=== PATIENT | female | born 1950 | race Caucasian/White ===

== ENCOUNTER 2016-05-29 17:08 | Emergency (ER) | END 2016-05-29 20:24 | disposition home or self-care (01) | DX: J06.9 Acute upper respiratory infection, unspecified (principal); I10 Essential (primary) hypertension; Z79.82 Long term (current) use of aspirin | CPT/HCPCS: 94664; 99283; J7512 ==

== ENCOUNTER 2016-07-20 14:40 | Emergency (ER) | payer OTHER ==
[~2016-07-20] VITALS: Ht 157.5 cm; Wt 83.5 kg
[~2016-07-20 14:40] MED LIST: ACET500C5 PO; ALBU18HF INHALATION; ASPI81TA3 PO; ATOR10TA65 PO; FAMO-18 PO; MAG355OR14 PO; MECL12.574 PO; OMEP20CA16 PO; PRED20TA PO; TRAM50TA2 PO
[2016-07-20 14:46] VITALS: Ht 157.5 cm; Wt 83.5 kg
--- NOTE | 2016-07-20 16:08 | ERD ---
ER Documentation Chief Complaint Date/Time DATE: 07/20/16 TIME: 16:03 Chief Complaint LEFT FACIAL PAIN AND LEFT ARM PAIN TODAY HPI 65-year-old female with a history of hypertension, knee arthritis, and cervical spine arthritis presents to the emergency department complaining of intermittent left-sided headache, left-sided facial numbness, left-sided lacrimation, left-sided arm pain and numbness 1 day. Patient currently describes her arm pain as a 6 out of 10 throbbing, intermittent, left-sided facial and upper extremity pain. Patient also complains of intermittent left- sided knee swelling and pain with ambulation. Patient states she has experienced all of her symptoms multiple times in the past. Patient states she has not attempted to treat her pain with any medication thus far. She denies any weakness, nausea, vomiting, diarrhea, abdominal pain, fever, or recent trauma. She denies chest pain or shortness of breath. ROS All systems reviewed and are negative except as per history of present illness. Medications Home Meds Active Scripts Ibuprofen* (Motrin*) 600 Mg Tab, 600 MG PO Q6, #30 TAB Prov:DOMINGA CHRISTINA PA-C 07/20/16 Hydrocodone/Acetaminophen (Hughes 5-325 Tablet) 1 Each Tablet, 1 TAB PO Q6H Y for PAIN, #7 TAB Prov:DOMINGA CHRISTINA PA-C 07/20/16 Cyclobenzaprine Hcl* (Cyclobenzaprine Hcl*) 10 Mg Tablet, 10 MG PO TID, #15 TAB Prov:DOMINGA CHRISTINA PA-C 07/20/16 Albuterol Sulfate* (Ventolin HFA*) 18 Gm Hfa.aer.ad, 2 PUFF INHALATION Q4H, #1 INHALER Prov:DIANE SKAGGS MD 05/29/16 Prednisone* (Prednisone*) 20 Mg Tab, 40 MG PO DAILY for 4 Days, TAB Start May 10, 2016 Prov:DIANE SKAGGS MD 05/29/16 Acetaminophen* (Tylophen*) 500 Mg Capsule, 1 CAP PO Q6H Y for PAIN AND OR ELEVATED TEMP, #15 CAP Prov:DIANE SKAGGS MD 05/29/16 Meclizine Hcl* (Antivert*) 12.5 Mg Tab, 12.5 MG PO Q6H Y for DIZZINESS, #20 TAB Prov:PERRY PAGE PA-C 02/22/16 Acetaminophen* (Tylophen*) 500 Mg Capsule, 1 CAP PO Q6H Y for PAIN AND OR ELEVATED TEMP, #30 CAP Prov:PERRY PAGE PA-C 02/22/16 Tramadol HCl (Tramadol HCl) 50 Mg Tablet, 50 MG PO Q4 Y for PAIN, #30 TAB Prov:PERRY PAGE PA-C 02/22/16 Famotidine* (Pepcid*) 20 Mg Tablet, 40 MG PO DAILY, #30 TAB Prov:MONICA HIDALGO MD 01/21/16 Mag Hydrox/Al Hydrox/Simeth (Maalox Advanced Suspension) 355 Ml Oral.susp, 2 TSP PO TID for PAIN, #24 OZ Prov:MONICA HIDALGO MD 01/21/16 Reported Medications Aspirin* (Aspirin* Chew) 81 Mg Tab.chew, 81 MG PO DAILY, TAB.CHEW 01/22/16 Atorvastatin Calcium (Atorvastatin Calcium) 10 Mg Tablet, 10 MG PO QHS, #30 TAB 01/22/16 Omeprazole* (Omeprazole*) 20 Mg Capsule.dr, 20 MG PO DAILY, #30 CAP 01/22/16 Allergies Allergies: Coded Allergies: No Known Allergy (Unverified , 01/22/16) PMhx/Soc Medical and Surgical Hx: pt denies Medical Hx, pt denies Surgical Hx History of Surgery: No Anesthesia Reaction: No Hx Neurological Disorder: No Hx Respiratory Disorders: No Hx Cardiac Disorders: Yes (HTN) Hx Psychiatric Problems: No Hx Miscellaneous Medical Probl: No Hx Alcohol Use: No Hx Substance Use: No Hx Tobacco Use: No Smoking Status: Never smoker Physical Exam Vitals Vital Signs Date Time Temp Pulse Resp B/P Pulse Ox O2 Delivery O2 Flow Rate FiO2 07/20/16 14:46 98.3 78 18 139/75 99 Physical Exam Const: Well-developed, well-nourished, nontoxic, no acute distress Head: Atraumatic Eyes: Normal Conjunctiva ENT: EOMs intact. PERRLA. Normal External Ears, Nose and Mouth. No lymphadenopathy. No tenderness to palpation of temporal region of face. Neck: Mildly decreased ROM d/t pain.~ No meningismus. Resp: Clear to auscultation bilaterally Cardio: Regular rate and rhythm, no murmurs Abd: Soft, non tender, non distended. Normal bowel sounds Skin: No petechiae or rashes Back: No midline or flank tenderness Ext: 5 out of 5 strength along shoulder and elbow joints bilaterally. Full active and passive range of motion bilateral knee joints. Radial, ulnar, median motor and sensory function intact bilaterally. Radial pulses 2+ equal and bilateral. Distal upper extremities warm and well perfused. Left knee joint without erythema or significant swelling. Skin warm to touch. NO Evidence of overlying cellulitis. No cyanosis, or edema Neur: Cranial nerves II through XII intact. Finger to nose test intact. Patient able to ambulate without difficulty. Awake and alert Psych: Normal Mood and Affect Results 24 hrs Current Medications Medications (Trade) Dose Ordered Sig/Jono Route PRN Reason Start Time Stop Time Status Last Admin Dose Admin Acetaminophen (Tylenol Tab) 650 mg ONCE ONCE PO 07/20/16 16:30 07/20/16 16:31 DC 07/20/16 16:16 Procedures/MDM PROCEDURE: CT Head without. CLINICAL INDICATION: Left-sided numbness, headache. TECHNIQUE: The study was performed utilizing a multi-slice, multidetector CT scanner. Direct spiral 1 mm axial sections were obtained through the head without the use of intravenous contrast material. 1 or more of the following dose reduction techniques were utilized: Automated exposure control, adjustment of the mA and/or kV according to patient's size, iterative reconstruction technique. Coronal and sagittal reformations were obtained. The images were reviewed on a PACS workstation. RADIATION DOSE: CTDIvol: 43.6 mGy DLP: 630.2 mGy-cm COMPARISON: 02/22/2016 FINDINGS: There is no intracranial hemorrhage, extra-axial fluid collection, mass lesion, midline shift or hydrocephalus. There is mild prominence of the cerebral sulci , lateral and third ventricles, within normal limits for age.. The white matter is unremarkable. The sandoval-white matter differentiation is preserved. The basal cisterns are patent. The midline structures are intact. The orbits, calvarium and extracranial soft tissues are normal in appearance. The visualized paranasal sinuses, mastoid air cells and middle ear cavities are normally aerated. IMPRESSION: 1. Mild peripheral and central cerebral volume loss, within normal limits for age. 2. No acute intracranial abnormality. No intracranial hemorrhage, extra-axial fluid collection, mass lesion or hydrocephalous. RPTAT: DD .Rashad Alegre MD, Date Time Electronically viewed and signed by .Rashad Alegre MD, MD on 07/20/2016 17: 01 .S/ CC: DOMINGA CHRISTINA PA-C 65-year-old well-appearing female presents to the emergency department for multiple complaints including headache, left-sided arm and facial numbness, and left knee pain. Patient states she is experienced these symptoms multiple times in the past and has been diagnosed with cervical arthritis. Patient denies any weakness, fever, nausea, vomiting or altered mental status. Physical exam without evidence of a acute neurologic deficit, unilateral weakness, major joint swelling or erythema, difficulty ambulating, or altered mental status. Vital signs reviewed. Patient afebrile, non-tachycardic, normotensive and not hypoxic upon arrival. She received 1 dose of Tylenol in the emergency department and reports improvement in symptoms. CT of the brain revealed evidence of mild peripheral and central cerebral volume loss is within normal limits for age. No acute intracranial abnormality or hemorrhage. Patient's clinical picture consistent with headache, cervical radiculopathy and arthritis of left knee. The patient's symptoms are unlikely related to serious etiology. The patient does not exhibit any clinical signs or symptoms, and has no risk factors to suggest headache etiology such as subarachnoid hemorrhage, acute vertebral or carotid dissection, intracranial mass, epidural, subdural hematoma, dural venous sinus thrombosis, giant cell arteritis, or pseudotumor cerebri. Instructed the patient to follow-up with primary care for a referral to audit specialist to better manage her cervical radiculopathy and knee pain. Based on patient's history of present illness and physical examination the decision was made to discharge. The patient was re-evaluated after ED treatment and stabilizing measures, and symptoms have improved. There is no evidence of life threatening injuries or illnesses at this time. On re-examination, patient resting in no distress, stable vital signs, reports feeling better and safe for discharge with outpatient follow up with PMD in 1-2 days. Patient given return precautions. Departure Diagnosis: Primary Impression: Multiple complaints Additional Impressions: Arthritis of knee Head pain Headache type: unspecified Headache chronicity pattern: unspecified pattern Intractability: not intractable Qualified Code: R51 - Nonintractable headache, unspecified chronicity pattern, unspecified headache type Facial numbness Arm pain Laterality: left Qualified Code: M79.602 - Pain of left upper extremity Arm numbness Lacrimation Laterality: left Qualified Code: H04.202 - Lacrimation, left Cervical radiculopathy DOMINGA CHRISTINA PA-C July 20, 2016 16:08
[2016-07-20] MEDS ORDERED: ACETAMINOPHEN 325 MG TAB PO ONE (16:30)
--- NOTE | 2016-07-20 17:02 | RADRPT ---
PROCEDURE: CT Head without. CLINICAL INDICATION: Left-sided numbness, headache. TECHNIQUE: The study was performed utilizing a multi-slice, multidetector CT scanner. Direct spira l 1 mm axial sections were obtained through the head without the use of intravenous contrast materia l. 1 or more of the following dose reduction techniques were utilized: Automated exposure control, adjustment of the mA and/or kV according to patient's size, iterative reconstruction technique. Co kadi and sagittal reformations were obtained. The images were reviewed on a PACS workstation. RADIATION DOSE: CTDIvol: 43.6 mGyDLP: 630.2 mGy-cm COMPARISON: 02/22/2016 FINDINGS: There is no intracranial hemorrhage, extra-axial fluid collection, mass lesion, midline shift or hyd rocephalus. There is mild prominence of the cerebral sulci, lateral and third ventricles, within no rmal limits for age.. The white matter is unremarkable. The sandoval-white matter differentiation is p reserved. The basal cisterns are patent. The midline structures are intact. The orbits, calvarium and extracranial soft tissues are normal in appearance. The visualized paranasal sinuses, mastoid a ir cells and middle ear cavities are normally aerated. IMPRESSION: 1. Mild peripheral and central cerebral volume loss, within normal limits for age. 2. No acute intracranial abnormality. No intracranial hemorrhage, extra-axial fluid collection, ma ss lesion or hydrocephalous. RPTAT: DD .Rashad Alegre MD, Date Time Electronically viewed and signed by .Rashad Alegre MD, on 07/20/2016 17:01 .S/
[2016-07-20] MEDS ORDERED: HYDR-906 PO (17:15)
[2016-07-20] MEDS ORDERED: CYCL-319 PO (17:15)
[2016-07-20] MEDS ORDERED: IBUP-1542 PO (17:15)
== END 2016-07-20 17:31 | disposition home or self-care (01) ==
LOC: FTE 14:40
DX: M17.9 Osteoarthritis of knee, unspecified (principal); R20.0 Anesthesia of skin; M79.602 Pain in left arm; H04.202 Unspecified epiphora, left side; M54.12 Radiculopathy, cervical region; I10 Essential (primary) hypertension; Z79.82 Long term (current) use of aspirin
CPT/HCPCS: 70450

== ENCOUNTER 2017-03-31 09:35 | Emergency (ER) | END 2017-03-31 16:32 | disposition home or self-care (01) ==